=== PATIENT | male | born 1930 | race Caucasian/White ===

== ENCOUNTER 2017-08-09 11:32 | Emergency (ER) | payer OTHER ==
[~2017-08-09] VITALS: Ht 177.8 cm; Wt 59.0 kg
[2017-08-09] MEDS ORDERED: ELIMITE 5% CREA60 GM TP (12:42)
[2017-08-09 22:30] VITALS: BP 132/78
== END 2017-08-10 00:22 | disposition home or self-care (01) ==
LOC: EME 11:32
DX: R21 Rash and other nonspecific skin eruption (principal)
CPT/HCPCS: 99281; 99283

== ENCOUNTER 2018-02-10 22:54 | Emergency (ER) | payer OTHER ==
[~2018-02-10] VITALS: Ht 177.8 cm; Wt 61.6 kg
[~2018-02-10 22:54] MED LIST: ELIMITE 5% CREA60 GM TP
[2018-02-11 01:07] LABS: APPEARANCE CLEAR ((CLEAR)); BILIRUBIN NEGATIVE; BLOOD NEGATIVE; COLOR YELLOW ((YELLOW)); GLUCOSE (STRIP) NEGATIVE; KETONES NEGATIVE; LEUKOCYTES NEGATIVE; NITRITE NEGATIVE; PROTEIN (STRIP) NEGATIVE; SPECIFIC GRAVITY 1.016 (1.000-1.030); UCUL ADDED? NO; UROBILINOGEN 0.2 MG/DL (0.2-1.0)
[2018-02-11 02:59] VITALS: BP 178/97
== END 2018-02-11 03:00 | disposition home or self-care (01) ==
LOC: EME → EDBD 22:54 → EME 02-11 03:00
PROVIDERS: Emergency Medicine
DX: S60.211A Contusion of right wrist, initial encounter (principal); S80.01XA Contusion of right knee, initial encounter; S80.02XA Contusion of left knee, initial encounter; F03.90 Unspecified dementia, unspecified severity, without behavioral disturbance, psychotic disturbance, mood disturbance, and anxiety; S00.81XA Abrasion of other part of head, initial encounter; W06.XXXA Fall from bed, initial encounter; Y92.193 Bedroom in other specified residential institution as the place of occurrence of the external cause; I10 Essential (primary) hypertension; I25.10 Atherosclerotic heart disease of native coronary artery without angina pectoris; I48.91 Unspecified atrial fibrillation; Z95.0 Presence of cardiac pacemaker; Z87.891 Personal history of nicotine dependence
CPT/HCPCS: 70450; 71045; 71250; 72170; 73110; 73560; 81003; 99281; 99283